=== PATIENT | female | born 1970 | race Caucasian/White ===

== ENCOUNTER 2024-03-19 11:41 | Emergency (ER) | payer OTHER, SELFPAY ==
[2024-03-19 11:47] VITALS: BP 122/98
[2024-03-19] MEDS: ATIVAN 2 MG IM (13:20)
--- NOTE | 2024-03-19 13:51 | ED.GENMED ---
History of Present Illness
<German Ponce PA-C - Last Filed: 03/20/24 13:04>
General
Chief Complaint: Anxiety
Time Seen by Provider: 03/19/24 13:08
History of Present Illness
History of Present Illness:
51-year-old female with history of anxiety currently managed on Pristiq presents to the emergency department for evaluation of lateral left anxiety and restlessness for the past 3 to 4 days. Over the past week she has had increased anxiety and
panic attacks but has been able to calm herself on occasion. Her psychiatrist increased her desvenlafaxine to 100 mg however she feels this is not helping her. She is unable to function at home and is unable to work due to the symptoms. She does
not have any abortive relief medications. Denies any suicidal or homicidal ideation. Denies any visual or auditory hallucinations
Review of Systems
<German Ponce PA-C - Last Filed: 03/20/24 13:04>
Review of Systems
Allergies reviewed?: Yes
All Other Systems: ROS reviewed and negative except as documented in HPI and ROS
Phy Exam
<German Ponce PA-C - Last Filed: 03/20/24 13:04>
Physical Exam
Physical Exam:
GEN: Well appearing, NAD, WDWN
HEENT: Markedly dilated pupils, reactive bilaterally, reportedly normal per patient, oral mucosa moist, no scleral icterus
Cardiac: Regular rate
Lung: No respiratory distress, no tachypnea
MSK: No gross deformity or injuries
Skin: Good color, no pallor or jaundice, no rashes
Neuro: AO x3, moves all extremities freely
Psych: Anxious and tremulous, unable to sit still, cooperative but tearful
Course
<German Ponce PA-C - Last Filed: 03/20/24 13:04>
Orders/Labs/Results
Orders:
Orders
03/19/24 13:13
Lorazepam [Ativan] 2 mg IM NOW STA
03/19/24 13:53
Olanzapine [Zyprexa] 5 mg IM NOW STA
03/19/24 16:01
Lorazepam [Ativan] 2 mg IV NOW STA
03/19/24 16:03
Crisis Consult Urgent
Reason for Consult: anxiety
03/19/24 16:20
PSYCHIATRY CONSULT Urgent
Consulting Provider: Paige Aviles
Was physician already notified: Yes
03/19/24 17:38
Test Result ONCE
03/19/24 17:45
Complete Blood Count/No Diff Urgent
Comprehensive Metabolic Panel Urgent
HCG, Serum Qualitative Screen Urgent
TSH Urgent
03/19/24 18:53
Lorazepam [Ativan] 1 mg PO NOW STA
Potassium Chloride 10% Elixir [KCl Elixir] 40 meq PO NOW STA
Abnormal Lab Results
03/19/24
17:45
MCH 32.5 H pg
(27.0-31.0)
Potassium 3.3 L mmol/L
(3.5-5.1)
Chloride 110 H mmol/L
(98-107)
Glucose 127 H mg/dl
(70-99)
03/19/24 17:45
03/19/24 17:45
Vital Signs
Initial and Last Documented VS:
Initial Vital Signs
Temp Pulse Resp BP Pulse Ox
99.0 F 90 18 122/98 97
03/19/24 11:47 03/19/24 11:47 03/19/24 11:47 03/19/24 11:47 03/19/24 11:47
Last Documented Vital Signs
Temp Pulse Resp BP Pulse Ox
99.0 F 82 18 118/78 96
03/19/24 11:47 03/19/24 15:58 03/19/24 15:58 03/19/24 15:58 03/19/24 15:58
<Juan José Torres MD - Last Filed: 03/19/24 18:54>
Orders/Labs/Results
Orders:
Orders
03/19/24 13:13
Lorazepam [Ativan] 2 mg IM NOW STA
03/19/24 13:53
Olanzapine [Zyprexa] 5 mg IM NOW STA
03/19/24 16:01
Lorazepam [Ativan] 2 mg IV NOW STA
03/19/24 16:03
Crisis Consult Urgent
Reason for Consult: anxiety
03/19/24 16:20
PSYCHIATRY CONSULT Urgent
Consulting Provider: Paige Aviles
Was physician already notified: Yes
03/19/24 17:38
Test Result ONCE
03/19/24 17:45
Complete Blood Count/No Diff Urgent
Comprehensive Metabolic Panel Urgent
HCG, Serum Qualitative Screen Urgent
TSH Urgent
03/19/24 18:53
Lorazepam [Ativan] 1 mg PO NOW STA
Potassium Chloride 10% Elixir [KCl Elixir] 40 meq PO NOW STA
Abnormal Lab Results
03/19/24
17:45
MCH 32.5 H pg
(27.0-31.0)
Potassium 3.3 L mmol/L
(3.5-5.1)
Chloride 110 H mmol/L
(98-107)
Glucose 127 H mg/dl
(70-99)
03/19/24 17:45
03/19/24 17:45
Vital Signs
Initial and Last Documented VS:
Initial Vital Signs
Temp Pulse Resp BP Pulse Ox
99.0 F 90 18 122/98 97
03/19/24 11:47 03/19/24 11:47 03/19/24 11:47 03/19/24 11:47 03/19/24 11:47
Last Documented Vital Signs
Temp Pulse Resp BP Pulse Ox
99.0 F 82 18 118/78 96
03/19/24 11:47 03/19/24 15:58 03/19/24 15:58 03/19/24 15:58 03/19/24 15:58
<German Ponce PA-C - Last Filed: 03/20/24 13:04>
MDM/Problems Addressed
MDM/Problems Addressed:
53-year-old female presents the emergency department for evaluation of increasing anxiety. She is quite anxious and tremulous required multiple doses of benzodiazepines and antipsychotics. She is mildly improved after multiple doses but remains
quite anxious. She was seen by crisis and is considering inpatient placement. 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
<German Ponce PA-C - Last Filed: 03/20/24 13:04>
*Critical Care Note
Total Time (30-74mins, 75-104mins- exclusive of procedures): Not Applicable
<German Ponce PA-C - Last Filed: 03/20/24 13:04>
Update Note
Update Note:
Crisis initially evaluated the patient requesting a psychiatry consult however psychiatry is unavailable. Patient is interested in inpatient versus partial program placement. Crisis will reevaluate for placement considerations
ED Attending Note
<German Ponce PA-C - Last Filed: 03/20/24 13:04>
-
Portions of this chart may have been created with voice recognition software.� Occasional wrong word or��sound alike� substitutions may have occurred due to the inherent limitations of voice recognition software.
<Juan José Torres MD - Last Filed: 03/19/24 18:54>
ED Attending Note
Patient seen and examined by attending physician: Yes
I performed the substantive portion of visit, reviewed & personally made and approve the management plan that is documented in note by myself or YAMILET.: Yes
ED Attending Note:
Lengthy discussion with the patient and . Anxiety is been an ongoing issue over 2 years. Recent adjustment of medication has not helped yet. No suicidal ideation. No other physical complaints denying chest pain shortness of breath unusual
weight change etc.
On exam patient is pleasant nontoxic no distress. No thyroid palpable. Clear lungs. Heart regular rate and rhythm. Abdomen nontender. Warm and dry. Perfusing well. Grossly nonfocal.
We were awaiting crisis further help in reality patient has a psychiatrist. Family and patient thought they might be able to adjust medications but this would clearly not happen from a workers compensation claims adjuster. They do not want to be admitted is a 201.
There is no indication for a psychiatric committal. They are comfortable with going home and contacting her psychiatrist tomorrow. We will give a small prescription for Ativan if needed
Discharge Plan
Departure
Patient Disposition: Home (Routine Discharge)
Date of Disposition: 03/19/24
Time of Disposition: 18:54
Patient with high blood pressure during this ER visit?: No
Discharge Problem:
Anxiety, Mild hypokalemia
Instructions: Hypokalemia, Anxiety, Adult (DC), Generalized Anxiety Disorder (DC)
Prescriptions:
New
lorazepam [Ativan] 1 mg tablet
1 mg PO Q12H PRN (Reason: anxiety) Qty: 10 0RF
Referrals:
Brandin Coker, [Family Provider] - Follow up in 2-3 days
Activity Restrictions/Additional Instructions:
Call your psychiatrist first thing tomorrow morning for close follow-up
Interventions
Interventions:
*Risk Screen - Suicide Last Done: 03/19/24 11:47
*General Assessment Last Done: 03/19/24 11:47
*Neglect/Abuse Screening Last Done: 03/19/24 11:47
ED- Fall Risk Assessment Last Done: 03/19/24 13:26
*Nursing Disposition Last Done: 03/19/24 19:25
ED-Psychological Assessment Last Done: 03/19/24 13:26
Discharge Date and Time
Discharge Date/Time: 03/19/24 19:25
Print Language: KINYARWANDA
[2024-03-19] MEDS: ZYPREXA 5 MG IM (14:39)
[2024-03-19 15:58] VITALS: BP 118/78
[2024-03-19] MEDS: ATIVAN 2 MG IV (16:13)
[2024-03-19 18:02] LABS: Hematocrit 39.2 % (37.0-47.0); Hemoglobin 13.7 g/dL (12.0-16.0); Mean Corp Hgb Conc. 34.9 g/dL (33.0-37.0); Mean Corpuscular Hgb 32.5 pg (27.0-31.0); Mean Corpuscular Volume 93.1 fL (81.0-99.0); Mean Platelet Volume 10.2 fL (7.4-10.4); Platelet Count 204 10^3/uL (130-400); Red Blood Cell Count 4.21 10^6/uL (4.20-5.40); Red Cell Dist. Width 11.8 % (11.5-14.5); White Blood Cell Count 7.3 10^3/uL (4.8-10.8)
[2024-03-19 18:13] LABS: HCG, Serum Qualitative Screen Negative
[2024-03-19 18:17] LABS: ALT (SGPT) 16 U/L (0-35); AST (SGOT) 30 U/L (14-36); Albumin 3.9 g/dl (3.5-5.0); Alkaline Phosphatase 56 U/L (38-126); Blood Urea Nitrogen 13 mg/dl (7-17); Calcium 8.6 mg/dl (8.4-10.2); Carbon Dioxide 25 mmol/L (22-30); Chloride 110 mmol/L (98-107); Glucose 127 mg/dl (70-99); Potassium 3.3 mmol/L (3.5-5.1); Sodium 140 mmol/L (135-145); Total Bilirubin 1.2 mg/dl (0.2-1.3); Total Protein 6.3 g/dl (6.3-8.2); eGFR > 60.00
[2024-03-19 18:49] LABS: TSH 1.14 uIU/ml (0.47-4.68)
[2024-03-19] MEDS: ATIVAN 1 MG PO (19:00)
[2024-03-19] MEDS: KCL ELIXIR 40 MEQ PO (19:00)
== END 2024-03-19 19:25 | disposition home or self-care (01) ==
LOC: EMR 11:41
PROVIDERS: Physician Assistant; CONSULT PHYSICIAN Psychiatry & Neurology Psychiatry; EMERGENCY PHYSICIAN Emergency Medicine; FAMILY PHYSICIAN Family Medicine
DX: F41.9 Anxiety disorder, unspecified (principal); E87.6 Hypokalemia
CPT/HCPCS: 99283; 96374; 96372; 80053; 84443; 84703; 85027; J2358

== ENCOUNTER 2025-03-21 11:48 | Emergency (ER) | payer SELFPAY ==
[2025-03-21] VITALS (7 sets, daily range): BP systolic 111–145; BP diastolic 72–88; BMI 21.0
[2025-03-21 12:09] LABS: Hematocrit 41.1 % (37.0-47.0); Hemoglobin 13.9 g/dL (12.0-16.0); Mean Corp Hgb Conc. 33.8 g/dL (33.0-37.0); Mean Corpuscular Volume 91.3 fL (81.0-99.0); Nucleated Red Blood Cells % 0 %; Platelet Count 236 10^3/uL (130-400); Red Cell Dist. Width 12.6 % (11.5-14.5)
[2025-03-21 12:23] LABS: ALT (SGPT) 16 U/L (0-35); AST (SGOT) 26 U/L (14-36); Albumin 5.1 g/dl (3.5-5.0); Alkaline Phosphatase 49 U/L (38-126); Blood Urea Nitrogen 10 mg/dl (7-17); Calcium 9.3 mg/dl (8.4-10.2); Carbon Dioxide 22 mmol/L (22-30); Chloride 107 mmol/L (98-107); Glucose 105 mg/dl (70-99); Potassium 4.4 mmol/L (3.5-5.1); Sodium 139 mmol/L (135-145); Total Protein 7.9 g/dl (6.3-8.2); eGFR > 60.00
[2025-03-21] MEDS: ATIVAN 1 MG IV (14:24)
[2025-03-21 15:09] LABS: Cortisol, Random 10.3 ug/dl
--- NOTE | 2025-03-21 15:18 | ED.GENMED ---
History of Present Illness
General
Chief Complaint: Anxiety
Source: patient
Time Seen by Provider: 03/21/25 13:42
History of Present Illness
History of Present Illness:
Note:
CHIEF COMPLAINT(S)
Anxiety.
HISTORY OF PRESENT ILLNESS
The patient is a 54-year-old female presenting with anxiety symptoms persisting for two weeks. She reports a history of similar symptoms occurring approximately one year ago. Previous treatments included the administration of diazepam (Valium)
prescribed by her psychiatrist and testosterone pellet therapy for low testosterone levels, which she states worsened her anxiety. The patient describes her anxiety as feeling 'like my body wants to come out of my skin' with associated symptoms of
worry, nervousness, restlessness, and tremors. Her current symptoms include a lack of appetite, nausea, and an episode of vomiting the previous day. She reports that her anxiety has been constant and unrelieved by diazepam, causing significant
impairment in her ability to work and engage in daily activities. The patient suspects hormonal imbalances and has a significant concern about potential underlying conditions such as pheochromocytoma.
The patient experiences no specific triggers for her anxiety, and it is worsened by physical exercise, despite participating in deep breathing and regular cardiovascular activities as coping mechanisms. Her symptoms began at the age of 51,
associated with menopausal changes and perceived hormonal disturbances. During past episodes, she was temporarily relieved by intravenous administration of lorazepam (Ativan), but she feels this has not resolved the underlying condition.
The patient has significant anxiety regarding her condition and expresses a strong desire for a resolution beyond temporary relief.
PAST MEDICAL AND SURGICAL HISTORY
The patient reports a history of insomnia and low testosterone levels previously treated with testosterone pellets.
CHRONIC MEDICAL CONDITIONS SIGNIFICANTLY AFFECTING CARE
1. Anxiety.
2. Insomnia.
3. Low testosterone levels.
MEDICATIONS
The patient is currently taking diazepam (Valium) for anxiety. Additional treatments have been tried, including selective serotonin reuptake inhibitors like escitalopram (Lexapro), without success.
PHYSICAL EXAM
General: Patient appears anxious without acute distress.
Skin: Warm, dry.
Head: Normocephalic, atraumatic.
Neck: Supple, trachea midline.
Eye, Ears, Nose, Mouth, and Throat: Oral mucosa moist.
Cardiovascular: Regular heart rate and rhythm without murmurs.
Respiratory: Clear respirations without wheezing or crackles.
Musculoskeletal: Normal strength and range of motion.
Neurological: Alert, oriented to person, place, time, and situation, no focal deficits observed.
Psychiatric: Cooperative, very anxious.
PLAN
1. Administer intravenous lorazepam to address acute anxiety.
2. Obtain an electrocardiogram to evaluate cardiac status.
3. Consider a random cortisol test to explore potential hormonal imbalances, acknowledging limitations given the absence of a controlled testing environment in the emergency setting.
4. Discuss the potential benefit of consulting an project manager/design manager for comprehensive hormonal assessment and management.
DIFFERENTIAL DIAGNOSIS
The Differential Diagnosis includes, in no particular order and is not limited to:
1. Generalized Anxiety Disorder.
2. Panic Disorder.
3. Hyperthyroidism.
4. Pheochromocytoma.
5. Menopausal Syndrome.
6. Adrenal Insufficiency.
7. Depression with somatic symptoms.
8. Cardiac Arrhythmias.
9. Gastrointestinal Disorders (e.g., Peptic Ulcer Disease).
10. Medication-Induced Anxiety (Benzodiazepine dependence or withdrawal).
Disposition:
SUMMARY OF ENCOUNTER
The patient, a 54-year-old female, was seen in the emergency department presenting with acute symptoms of anxiety. She has a history of longstanding anxiety with previous attempts to address potential organic causes. During her visit, the patient
expressed concerns about possible endocrine-related conditions such as pheochromocytoma. While in the emergency department, the patient received lorazepam for her acute symptoms. Laboratory tests including CBC, CMP, TSH, and cortisol levels were
conducted and all returned normal. An ECG was performed, showing normal sinus rhythm without ischemic changes. The patient expressed plans to follow up with an project manager/design manager to further investigate endocrine causes and has a scheduled follow-up
with her primary care physician.
ASSESSMENT
The patient�s anxiety may have potential hormonal or endocrine underpinnings which remain to be fully evaluated.
EMERGENCY TREATMENTS ADMINISTERED
Lorazepam was administered to address acute anxiety symptoms.
PLAN
The patient is planned for outpatient follow-up with an project manager/design manager to investigate potential endocrine causes and has a scheduled follow-up with her primary care physician on Wednesday. Continued management of symptoms and monitoring of potential
underlying conditions will be pursued.
INDEPENDENT REVIEW OF LABS AND INTERPRETATION OF TESTS
- My independent review of CBC is normal findings.
- My independent review of CMP is normal findings.
- My independent review of TSH is normal findings.
- My independent review of random cortisol level is normal findings.
MEDICATION RECONCILIATION
Administered lorazepam to manage acute anxiety symptoms.
MEDICAL DECISION MAKING
- Number and Complexity of Problems Addressed: Chronic conditions affecting care include anxiety, insomnia, and low testosterone levels. Differential diagnoses considered include Generalized Anxiety Disorder, Panic Disorder, Hyperthyroidism,
Pheochromocytoma, Menopausal Syndrome, Adrenal Insufficiency, Depression with somatic symptoms, Cardiac Arrhythmias, Gastrointestinal Disorders, and Medication-Induced Anxiety.
- Data:
- Category 1: Tests reviewed include normal CBC, CMP, TSH, and cortisol levels.
- Category 2: My independent interpretation of ECG reveals normal sinus rhythm without ischemic changes.
- Risk: Prescription drug management and therapy requiring monitoring for toxicity were considered.
DIAGNOSIS
- Generalized Anxiety Disorder (F41.1).
- Anxiety Disorder due to known physiological condition (F06.4).
Course
Orders/Labs/Results
Orders:
Orders
03/21/25 12:01
Complete Blood Count/With Diff Urgent
Comprehensive Metabolic Panel Urgent
Cortisol, Random Urgent
Comment: ADD ON
TSH Reflex To Free T4 Urgent
03/21/25 13:52
Add On- LAB Urgent
Tests Added?: random cortisol
Electrocardiogram (*1) Urgent
Reason for Study: Chest Pain
EKG- Treatment ONCE
Lorazepam [Ativan] 1 mg IV NOW STA
03/21/25 15:30
Lorazepam [Ativan] 1 mg IV NOW STA
03/21/25 15:39
Lorazepam [Ativan] 2 mg IV NOW STA
Abnormal Lab Results
03/21/25
12:01
Glucose 105 H mg/dl
(70-99)
Albumin 5.1 H g/dl
(3.5-5.0)
03/21/25 12:01
03/21/25 12:01
Vital Signs
Initial and Last Documented VS:
Initial Vital Signs
Temp Pulse Resp BP Pulse Ox
98.5 F 88 18 145/88 98
03/21/25 11:56 03/21/25 11:56 03/21/25 11:56 03/21/25 11:56 03/21/25 11:56
Last Documented Vital Signs
Temp Pulse Resp BP Pulse Ox
98.5 F 72 20 115/72 100
03/21/25 11:56 03/21/25 14:34 03/21/25 14:34 03/21/25 14:34 03/21/25 15:19
*Pulse Oximetry
SaO2: 100
Oxygen Mode of Delivery: Room air
Patient hypoxic: no
*Air Brush Artist Interpretation
Rate: normal
Interpretation: normal
Rhythm: sinus
*Critical Care Note
Total Time (30-74mins, 75-104mins- exclusive of procedures): Not Applicable
Data Reviewed
Source: patient
ED Attending Note
-
Portions of this chart may have been created with voice recognition software.� Occasional wrong word or��sound alike� substitutions may have occurred due to the inherent limitations of voice recognition software.
Discharge Plan
Departure
Patient with high blood pressure during this ER visit?: No
Discharge Problem:
Anxiety
Instructions: Anxiety, Adult (DC)
Prescriptions:
No Action
lorazepam [Ativan] 1 mg tablet
1 mg PO Q12H PRN (Reason: anxiety) Qty: 10 0RF
Referrals:
Brandin Coker, DO [Family Provider, Family Practice]
Activity Restrictions/Additional Instructions:
Please follow-up with your doctor as planned on Wednesday and consider seeing endocrinology for follow-up for further assessment to ensure that there are no other causes of your symptoms. Return immediately for chest pain, shortness of breath,
worsening symptoms or any other concerns.
Interventions
Interventions:
*Risk Screen - Suicide Last Done: 03/21/25 11:56
*General Assessment Last Done: 03/21/25 11:56
*Neglect/Abuse Screening Last Done: 03/21/25 11:56
*ED- Fall Risk Assessment Last Done: 03/21/25 11:56
*ED COVID-19 Vaccine History Last Done: 03/21/25 11:56
ED-Psychological Assessment Last Done: 03/21/25 14:10
Discharge Date and Time
Print Language: SINHALA
[2025-03-21] MEDS: ATIVAN 2 MG IV (15:46)
--- NOTE | 2025-03-21 17:05 | EDRN ---
Pt states IV Ativan was unsuccessful and she needs something else. Pt also requesting to speak to physician. Dr. Naik informed and will speak to pt.
[2025-03-21] MEDS: VALIUM INJECTION 2 MG IV (18:44)
== END 2025-03-21 19:42 | disposition home or self-care (01) ==
LOC: EMR 11:48
PROVIDERS: Emergency Medicine; EMERGENCY PHYSICIAN Emergency Medicine; FAMILY PHYSICIAN Family Medicine
DX: F41.9 Anxiety disorder, unspecified (principal); G47.00 Insomnia, unspecified; R87.1 Abnormal level of hormones in specimens from female genital organs
CPT/HCPCS: 99284; 96374; 96375; 96376 ×2; 80053; 82533; 84443; 85025; 93005